=== PATIENT | female | born 1935 | race Caucasian/White ===

== ENCOUNTER → 2017-04-25 | Outpatient (CLI) | payer BC ==
[~2017-04-25] MED LIST: MULT-506 PO
[2017-04-25 11:09] LABS: HEMATOCRIT 42.5 % (37-47); MEAN CELL VOLUME 95.7 fL (80-100); MEAN CORPUSCULAR HEMOGLOBIN 32.7 pg (25-34); MEAN CORPUSCULAR HGB CONC 34.1 g/dl (32-36); MEAN PLATELET VOLUME 10.6 fL (7.4-10.4); PLATELET COUNT 197 K/uL (130-400); RED BLOOD COUNT 4.44 M/uL (4.2-5.4)
[2017-04-25 11:39] LABS: ALT/SGPT 23 U/L (12-78); AST/SGOT 19 U/L (15-37); BLOOD UREA NITROGEN 12 mg/dl (7-18); BUN/CREATININE RATIO 26.2 (10-20); CALCIUM 8.5 mg/dl (8.5-10.1); CARBON DIOXIDE 27 mmol/L (21-32); CHLORIDE 101 mmol/L (98-107); CREATININE 0.46 mg/dl (0.60-1.20); GLUCOSE 100 mg/dl (70-99); POTASSIUM 4.1 mmol/L (3.5-5.1); SODIUM 136 mmol/L (136-145)
[2017-04-25 11:50] LABS: ALB/GLOB RATIO 1.1 (0.9-2); ALKALINE PHOSPHATASE 88 U/L (45-117); CHOLESTEROL 217 mg/dl (0-200); CHOLESTEROL/HDL RATIO 1.9; HDL CHOLESTEROL 112 mg/dl; LDL CHOLESTEROL CALCULATED 96 mg/dl; TRIGLYCERIDES 47 mg/dl (0-150); VERY LOW DENSITY LIPOPROT CALC 9 mg/dl
[2017-04-25 11:57] LABS: BASO ABS # 0.07 K/uL (0-0.2); BASOPHIL % 1.8 %; COMPLETE YES; EOSINOPHIL % 2.7 %; LYMPH ABS # 1.03 K/uL (1.2-3.4); LYMPHOCYTE % 26.4 %; NEUTROPHILS % 38.2 %; VARIANT LYM ABS # 0.92 K/uL; VARIANT LYMPHOCYTE % 23.6 %
== END | disposition home or self-care (01) ==
LOC: C.LABBC 08:07
PROVIDERS: ATTEND Nurse Practitioner Adult Health
DX: Z00.00 Encounter for general adult medical examination without abnormal findings (principal)